=== PATIENT | female | born 1950 | race Two or more races ===

== ENCOUNTER 2019-02-05 07:45 | Inpatient (IN) | payer OTHER ==
[~2019-02-05] VITALS: Ht 165.1 cm; Wt 77.1 kg
[2019-02-05] MEDS ORDERED: COZAAR100 MG PO (12:06)
[2019-02-05] MEDS ORDERED: HORIZANT600 MG PO (12:06)
[2019-02-05] MEDS ORDERED: SERTRALINE HCL100 MG PO (12:06)
[2019-02-05] MEDS ORDERED: RANITIDINE HCL300 M1 PO (12:07)
[2019-02-05] MEDS ORDERED: ASA81 MG PO (12:07)
[2019-02-05] MEDS ORDERED: BUPROPION XL300 MG PO (12:07)
[2019-02-05] MEDS ORDERED: LASIX20 MG PO (12:07)
[2019-02-05] MEDS ORDERED: DICYCLOMINE HCL20 MG PO (12:08)
[2019-02-05] MEDS ORDERED: TEMAZEPAM7.5 MG PO (12:08)
[2019-02-05] MEDS ORDERED: PROTONIX40 MG PO (12:08)
[2019-02-07] MEDS ORDERED: SYNTHROID88 MCG PO (10:52)
[2019-02-13] MEDS ORDERED: OXYC1TAB9 PO (08:19)
[2019-02-13] MEDS ORDERED: XARELTO10 MG PO (08:19)
[2019-02-13] MEDS ORDERED: INTEGRA PLUS C1 EACH PO (08:19)
== END 2019-02-14 19:51 | disposition home or self-care (01) | DRG 470 ==
LOC: SURH 02-10 06:51 → O/R 02-10 06:51 → RECOVERY 02-10 07:45 → SURH 02-10 16:50
PROVIDERS: ADMIT Orthopaedic Surgery Sports Medicine
PROC: 0SRD0J9 Replacement of Left Knee Joint with Synthetic Substitute, Cemented, Open Approach (ICD-10-PCS; principal; 2019-02-10 11:00)
DX: M17.12 Unilateral primary osteoarthritis, left knee (principal); E03.8 Other specified hypothyroidism; I10 Essential (primary) hypertension